=== PATIENT | female | born 1990 | race African-American/Black ===

== ENCOUNTER 2017-12-08 08:18 | Emergency (ER) | END 2017-12-08 10:16 | disposition home or self-care (01) ==

== ENCOUNTER 2018-02-02 11:05 | Emergency (ER) | END 2018-02-02 12:56 | disposition home or self-care (01) ==

== ENCOUNTER 2018-03-28 11:06 | Emergency (ER) | END 2018-03-28 12:15 | disposition home or self-care (01) ==

== ENCOUNTER 2018-05-11 10:30 | Emergency (ER) | END 2018-05-11 11:34 | disposition home or self-care (01) ==

== ENCOUNTER 2018-06-30 14:27 | Emergency (ER) | END 2018-06-30 16:53 | disposition home or self-care (01) ==